=== PATIENT | female | born 1990 | race Caucasian/White ===

== ENCOUNTER 2016-11-13 11:27 | Emergency (ER) | payer SELFPAY ==
[~2016-11-13] VITALS: Ht 157.5 cm; Wt 100.0 kg
[2016-11-13] MEDS ORDERED: IBUP-1547 PO (11:32)
[2016-11-13] MEDS ORDERED: KETOROLAC TROMETHAMINE 60 MG/2 ML VIAL IM ONE (12:00)
[2016-11-13] MEDS ORDERED: CYCLOBENZAPRINE HCL 10 MG TABLET PO ONE (12:00)
[2016-11-13 13:35] VITALS: BP 126/73
== END 2016-11-13 13:58 | disposition home or self-care (01) ==
LOC: EMS 11:29
DX: M54.5 Low back pain (principal)
CPT/HCPCS: 96372; 99283; J1885